=== PATIENT | female | born 1960 | race Caucasian/White ===

== ENCOUNTER 2023-12-09 20:43 | Emergency (ER) | payer OTHER ==
[~2023-12-09] VITALS: Ht 170.2 cm; Wt 72.6 kg
[2023-12-09] MEDS ORDERED: TOPROL XL50 M1 (20:57)
[2023-12-09] MEDS ORDERED: FOLIC ACID 1 MG TABLET PO ONE (21:15)
[2023-12-09] MEDS ORDERED: DEXTROSE 5 % IN WATER 1,000 ML IV ONE (21:15)
[2023-12-09] MEDS ORDERED: 0.9 % SODIUM CHLORIDE 1,000 ML IV ONE (21:15)
[2023-12-09] MEDS ORDERED: THIAMINE HCL 100 MG TABLET PO ONE (21:15)
[2023-12-09 22:05] LABS: HEMATOCRIT 34.3 % (36.0-45.00); MEAN CORPUSCULAR HEMOGLOBIN 33.7 pg (27.00-32.0); MEAN CORPUSCULAR HGB CONC 35.1 g/dl (32.0-36.0); PLATELET COUNT 227 K/uL (150-450); RED BLOOD COUNT 3.57 M/uL (4.00-6.00); RED CELL DISTRIBUTION WIDTH 12.2 % (11.5-14.5)
[2023-12-09] MEDS ORDERED: THIAMINE HCL 100 MG/ML 2 ML VIAL IV ONE (22:15)
[2023-12-09 22:18] LABS: CALCIUM 8.8 mg/dL (8.5-10.1); CREATININE SERUM 0.78 mg/dL (0.55-1.02); GFR 74.35; POTASSIUM 4.22 mEq/L (3.5-5.1)
[2023-12-09 22:44] LABS: ABG PH 7.437 (7.35-7.45); ABG PO2 75.8 mmHg (80-100); ABG pCO2 34.9 mmHg (35-45); SaO2 95.5 %
[2023-12-09 22:45] LABS: BASE EXCESS -0.6 mmol/l
[2023-12-09 22:47] LABS: o2 21 %
[2023-12-09 22:48] LABS: allen test SATISFACTORY; puncture site RADIAL RIGHT
[2023-12-10 00:17] LABS: PH,URINE 5.5 (5.0-8.0); URINE APPEARANCE Clear; URINE BILIRRUBIN Negative (NEGATIVE); URINE BLOOD Negative; URINE COLOR Yellow; URINE GLUCOSE Negative (NEGATIVE); URINE LEUKOCYTE Moderate; URINE NITRATE Negative; URINE PROTEIN Negative (NEGATIVE); URINE UROBILINOGEN 0.2 E.U./dl
[2023-12-10 00:18] LABS: URINE BACTERIA 158.7 uL (0.0-1933); URINE EPITHELIAL CELLS 10.6 uL (0.0-38.8); URINE WBC 186.3 uL (0.0-23.2)
[2023-12-10 00:42] LABS: URINE RBC 1.7 uL (0.0-20.8)
== END 2023-12-10 03:14 | disposition home or self-care (01) ==
LOC: ER 20:43
PROVIDERS: General Practice
DX: F10.10 Alcohol abuse, uncomplicated (principal)
CPT/HCPCS: 36415; 70450; 96365; 96366; 99283; J3490